=== PATIENT | male | born 1995 | race Caucasian/White ===

== ENCOUNTER 2017-03-11 10:26 | Emergency (ER) | payer MEDICAID ==
[~2017-03-11] VITALS: Ht 175.3 cm; Wt 66.0 kg
[2017-03-11 10:33] VITALS: BP 116/77
== END 2017-03-11 16:45 | disposition left against medical advice (07) ==
LOC: ER 11:04
DX: R10.9 Unspecified abdominal pain (principal); Z53.21 Procedure and treatment not carried out due to patient leaving prior to being seen by health care provider